=== PATIENT | female | born 1980 | race Caucasian/White ===

== ENCOUNTER 2016-11-30 18:15 | Emergency (ER) | payer OTHER ==
[2016-11-30 18:15] VITALS: BMI 22.4
[2016-11-30 18:27] VITALS: BP 135/65; PULSE 70; RESP 18; TEMP 97.5; O2SAT 98
--- NOTE | 2016-11-30 19:40 | ED PDOC ---
HPI: Female Pain Time Seen by Provider: 11/30/16 19:06 Chief Complaint (Nursing): Female Genitourinary Chief Complaint (Provider): Vaginal bleeding History Per: Patient History/Exam Limitations: no limitations Current Symptoms Are (Timing): Gone Now Associated Symptoms: denies: Vomiting Additional Complaint(s): Patient is a 36 year old female who is 7 weeks (G4, P1, A2), presenting to the emergency department for small amount of vaginal bleeding (3 episodes) since this afternoon. Only one pad was used today and she is currently not bleeding. Denies blood clots, abdominal pain, or vomiting. Of note, patient had an ultrasound done 3 days ago. PCP: none provided. 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 [facility] Past Medical History Reviewed: Historical Data, Nursing Documentation, Vital Signs Vital Signs: Last Vital Signs Temp 97.5 F L 11/30/16 18:22 Pulse 70 11/30/16 18:22 Resp 18 11/30/16 18:22 BP 135/65 11/30/16 18:22 Pulse Ox 98 11/30/16 18:22 - Medical History Other PMH: Lupus - Surgical History Surgical History: No Surg Hx - Family History Family History: States: Unknown Family Hx - Home Medications Home Medications: Ambulatory Orders Medication Instructions Recorded Cyclobenzaprine [Cyclobenzaprine 10 mg PO TID #20 tab 07/31/15 HCl] Ibuprofen [Motrin] 600 mg PO Q6 #20 tab 07/31/15 Promethazine HCl/Codeine 5 ml PO HS #80 ml 07/31/15 [Promethazine HCl-Codeine Phosphate 10 mg/5 ml] - Allergies Allergies/Adverse Reactions: Allergies Allergy/AdvReac Type Severity Reaction Status Date / Time No Known Allergies Allergy Verified 07/15/16 08:33 Review of Systems ROS Statement: Except As Marked, All Systems Reviewed And Found Negative Gastrointestinal: Negative for: Vomiting, Abdominal Pain Genitourinary Female: Positive for: Vaginal Bleeding (3 episodes). Negative for : Other (blood clots) Physical Exam - Reviewed Nursing Documentation Reviewed: Yes Vital Signs Reviewed: Yes - Physical Exam Appears: Positive for: Well, Non-toxic, No Acute Distress Head Exam: Positive for: ATRAUMATIC, NORMAL INSPECTION, NORMOCEPHALIC Skin: Positive for: Normal Color, Warm, Dry Eye Exam: Positive for: Normal appearance, EOMI, PERRL ENT: Positive for: Normal ENT Inspection Neck: Positive for: Normal, Painless ROM, Supple Cardiovascular/Chest: Positive for: Regular Rate, Rhythm. Negative for: Murmur Respiratory: Positive for: Normal Breath Sounds. Negative for: Accessory Muscle Use, Respiratory Distress Gastrointestinal/Abdominal: Positive for: Normal Exam, Soft Back: Positive for: Normal Inspection. Negative for: L CVA Tenderness, R CVA Tenderness Extremity: Positive for: Normal ROM. Negative for: Pedal Edema Neurologic/Psych: Positive for: Alert, Oriented - ECG O2 Sat by Pulse Oximetry: 98 (RA) Pulse Ox Interpretation: Normal Medical Decision Making Medical Decision Making: Time: 19:31 Initial impression: Vaginal bleeding with (first trimester). Differential includes but not limited to threatened miscarriage, demise, incomplete , ruling out ectopic but most unlikely because US completed 3 days ago shoes normal heart beat and viable IUP Initial plan: * Type and Screen * Serum * Urine * Urine Dipstick * US OB Transvaginal * Reevaluation 19:45 --Beta HCG, Quantitative: 434655.00 mIU/ mL 22:14 -US reviewed. FINDINGS: Uterus: Measures 8.5 x 4.6 cm. Single intrauterine gestation identified. pole and yolk sac are seen. Estimated gestational age is 9 weeks, 1 day, based on the crown rump length. Estimated delivery date is 07/08/2017. heart motion visualized, at 173 beats per minute. Note that the anatomy, amniotic fluid volume, and placental position cannot be evaluated at this early gestational age. Cervix appears closed, and is normal in length, measuring 3.6 cm. Right ovary: Within normal limits in appearance. Measures 3.7 x 1.7 x 2.8 cm. Flow seen in the right ovary on color and Doppler imaging, with no evidence of torsion. Left ovary: Within normal limits in appearance. Measures 3.1 x 2.7 x 1.8 cm. Flow seen in the left ovary on color and Doppler imaging, with no evidence of torsion. Cul de sac: No free fluid. IMPRESSION: 9 week, 1 day intrauterine with heart motion. No acute abnormality identified. Scribe Attestation: Documented by Monique Paris, acting as a scribe for Anjali Arrieta MD. Provider Scribe Attestation: All medical record entries made by the Scribe were at my direction and personally dictated by me. I have reviewed the chart and agree that the record accurately reflects my personal performance of the history, physical exam, medical decision making, and the department course for this patient. I have also personally directed, reviewed, and agree with the discharge instructions and disposition. Disposition - Clinical Impression Clinical Impression: Threatened , Vaginal bleeding before 22 weeks gestation - Patient ED Disposition Is Patient to be Admitted: No Doctor Will See Patient In The: Office Counseled Patient/Family Regarding: Studies Performed, Diagnosis, Need For Followup - Disposition Referrals: [facility] [Outside] Disposition: Routine/Home Disposition Time: 22:51 Condition: GOOD Additional Instructions: Follow up with your [facility] within 2 days. Instructions: Threatened Miscarriage (ED)
--- NOTE | 2016-11-30 22:12 | US ---
EXAM: US , Transvaginal CLINICAL HISTORY: 36 years old, female; Signs and symptoms; Lmp or gestational age (in weeks): 10/01/16; Antepartum complications; Hemorrhage; ; Additional info: Vaginal bleeding TECHNIQUE: Real-time transvaginal obstetrical ultrasound of the maternal pelvis and a first trimester with image documentation. Transvaginal imaging was used for better evaluation of the fetus and adnexa. EXAM DATE/TIME: 11/30/2016 7:31 PM COMPARISON: No relevant prior studies available. FINDINGS: Uterus: Measures 8.5 x 4.6 cm. Single intrauterine gestation identified. pole and yolk sac are seen. Estimated gestational age is 9 weeks, 1 day, based on the crown rump length. Estimated delivery date is 07/08/2017. heart motion visualized, at 173 beats per minute. Note that the anatomy, amniotic fluid volume, and placental position cannot be evaluated at this early gestational age. Cervix appears closed, and is normal in length, measuring 3.6 cm. Right ovary: Within normal limits in appearance. Measures 3.7 x 1.7 x 2.8 cm. Flow seen in the right ovary on color and Doppler imaging, with no evidence of torsion. Left ovary: Within normal limits in appearance. Measures 3.1 x 2.7 x 1.8 cm. Flow seen in the left ovary on color and Doppler imaging, with no evidence of torsion. Cul de sac: No free fluid. IMPRESSION: 9 week, 1 day intrauterine with heart motion. No acute abnormality identified. See above for remaining findings.
== END 2016-11-30 23:02 | disposition home or self-care (01) ==
LOC: H.ER 18:15
DX: O20.0 Threatened abortion (principal); M32.9 Systemic lupus erythematosus, unspecified

== ENCOUNTER 2017-04-14 06:13 | Emergency (ER) | payer OTHER ==
[2017-04-14 09:34] VITALS: BMI 26.2
[2017-04-14 10:40] LABS: RBC URINE 3 /hpf (0-3); URINE BACTERIA MOD (<OCC); URINE BILIRUBIN NEGATIVE (NEGATIVE); URINE BLOOD NEGATIVE (NEGATIVE); URINE COLOR YELLOW (YELLOW); URINE GLUCOSE (UA) NEG (Normal); URINE KETONE NEGATIVE (NEGATIVE); URINE LEUKOCYTE ESTERASE TRACE Leu/uL (Negative); URINE PROTEIN NEGATIVE (NEGATIVE); URINE UROBILINOGEN 0.2-1.0 mg/dL (0.2-1.0); WBC URINE 13 /hpf (0-5)
--- NOTE | 2017-04-14 14:09 | OBHP ---
Datetime: 04/14/2017 12:11 IP Adm Impression: , intrauterine ; No Active Labor IP Admit Plan: Discharge home Admit Comment, IP Provider: Pt was seen and evaluated, pt's UA results postive for bacteria (moderat e amount) but negative for nitrates. Pt discharged home with macrobid 100 BID for 5 day Pt advised to follow up with provider in 2days ED precautions reviewed with patient Madan Lyles PGY 3 Pt seen with resident I agree with the note EGA AdmitDate IP: 28.6 Vital Signs Provider: Reviewed IP Chief Complaint: Maternal discomfort Datetime: 04/14/2017 07:54 IP Chief Complaint Other: Right flank pain Extremities - PN: Normal Abdomen - PN: Normal Lungs - PN: Normal Heart - PN: Normal Thyroid - PN: Normal General - PN: Normal FHR - Baseline A Provider: 130 Contraction Comments Provider: NO Comments, ACOG Physical Exam: Back: tenderness over R flank area. Gestation - Est Wks by US: 28.6 NICHD Variability Prov Fetus A: Moderate 6-25bpm NICHD Accel Fetus A IP Provider: [id number] FHR Category Provider Fetus A: Category I DTRs - PN: Normal
[2017-04-14 16:07] VITALS: BP 90/61; PULSE 78; O2SAT 99
== END 2017-04-14 11:30 | disposition home or self-care (01) ==
LOC: H.EROB2 06:13 → H.L&D 06:13 → H.EROB2 11:30
DX: O23.42 Unspecified infection of urinary tract in pregnancy, second trimester (principal); Z3A.28 28 weeks gestation of pregnancy

== ENCOUNTER 2017-07-01 10:52 | Emergency (ER) | payer OTHER ==
[2017-07-01 10:52] VITALS: BMI 26.2
[2017-07-01 10:58] VITALS: TEMP 97
[2017-07-01] MEDS ORDERED: Morphine 4 MG/ML VIAL IV STA (12:23)
[2017-07-01] MEDS ORDERED: Morphine 4 MG/ML VIAL ONE (12:47)
[2017-07-01 12:53] LABS: BASO # 0.1 K/uL (0.0-0.2); EOS # 0.2 K/uL (0.0-0.7); EOS % 2.9 % (0.0-4.0); HEMOGLOBIN 12.3 g/dL (12.0-16.0); LYMPH # 2.4 K/uL (1.0-4.3); LYMPH % 29.7 % (20.0-40.0); MEAN CELL VOLUME 89.5 fl (81.0-99.0); MEAN CORPUSCULAR HEMOGLOBIN 29.5 pg (27.0-31.0); MEAN CORPUSCULAR HGB CONC 32.9 g/dL (33.0-37.0); MEAN PLATELET VOLUME 9.9 fl (7.2-11.7); MONO # 0.6 K/uL (0.0-0.8); MONO % 7.9 % (0.0-10.0); NEUT # 4.7 K/uL (1.8-7.0); NEUT % 58.5 % (50.0-75.0); NRBC % 0.4 % (0.0-0.0); RBC 4.18 Mil/uL (3.80-5.20); RED CELL DISTRIBUTION WIDTH 14.2 % (11.5-14.5)
--- NOTE | 2017-07-01 13:05 | ED PDOC ---
HPI: Headache Time Seen by Provider: 07/01/17 11:08 Chief Complaint (Nursing): Headache Chief Complaint (Provider): PAYNE History Per: Patient History/Exam Limitations: no limitations Additional Complaint(s): Pt 1 week presents to ED with c/o bilateral frontal PAYNE, took BP at home 152/102, not taking BP meds, pain not relieved with Ibuprofen. Denies fever, neck stiffness, paresthesias, weakness, visual changes, photophobia. No problems during . Past Medical History Reviewed: Nursing Documentation, Vital Signs Vital Signs: Last Vital Signs Temp 97 F L 07/01/17 10:57 Pulse 58 L 07/01/17 10:57 Resp BP 126/84 07/01/17 10:57 Pulse Ox 99 07/01/17 10:57 - Medical History Other PMH: SLE - Family History Family History: States: Unknown Family Hx - Living Arrangements Living Arrangements: With Family - Social History Current smoker - smoking cessation education provided: No Alcohol: None - Home Medications Home Medications: Ambulatory Orders Medication Instructions Recorded Amoxicillin/Potassium Clav 1 tab PO BID 07/01/17 [Augmentin 500-125 Tablet] Hydroxychloroquine Sulfate 1 tab PO BID 07/01/17 [Plaquenil] Naproxen [Naprosyn] 500 mg PO BID PRN #15 tablet 07/01/17 - Allergies Allergies/Adverse Reactions: Allergies Allergy/AdvReac Type Severity Reaction Status Date / Time No Known Allergies Allergy Verified 07/01/17 11:38 Review of Systems Constitutional: Negative for: Fever, Chills Eyes: Negative for: Vision Change ENT: Negative for: Ear Pain Cardiovascular: Negative for: Chest Pain, Palpitations Respiratory: Negative for: Cough, Shortness of Breath Gastrointestinal: Negative for: Nausea, Vomiting, Abdominal Pain, Diarrhea Genitourinary Female: Negative for: Dysuria Musculoskeletal: Negative for: Neck Pain, Back Pain Skin: Negative for: Rash, Lesions Neurological: Positive for: Headache. Negative for: Weakness, Numbness, Incoordination, Change in Speech, Confusion, Seizures, Altered Mental Status, Dizziness Physical Exam - Reviewed Nursing Documentation Reviewed: Yes Vital Signs Reviewed: Yes - Physical Exam Appears: Positive for: Well, No Acute Distress Head Exam: Positive for: ATRAUMATIC, NORMAL INSPECTION Skin: Positive for: Normal Color, Warm, Dry Eye Exam: Positive for: Normal appearance, EOMI, PERRL Neck: Positive for: Normal, Painless ROM, Supple Cardiovascular/Chest: Positive for: Regular Rate, Rhythm Respiratory: Positive for: Normal Breath Sounds Extremity: Positive for: Normal ROM. 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 Negative for: Motor/Sensory Deficits, Aphasia, Facial Droop - Laboratory Results Result Diagrams: 07/01/17 12:47 07/01/17 12:47 Urine dip results: Negative for: Protein - ECG O2 Sat by Pulse Oximetry: 99 Medical Decision Making Medical Decision Makin yo female with PAYNE. - labs - CT head - Morphine Accession No. : [id number] Patient Name / ID : [id number] TERRELL / [id number] Exam Date : 07/01/2017 13:02:48 ( Approved ) Study Comment : Sex / Age : F / 37Y Creator : Leticia Ospina MD Dictator : Leticia Ospina MD Make Up Arranger : Broadband Installer : Leticia Ospina MD Approver2 : Report Date : 07/01/2017 13:31:48 My Comment : PROCEDURE: CT HEAD WITHOUT CONTRAST. HISTORY: n COMPARISON: None available. TECHNIQUE: Axial computed tomography images were obtained through the head/brain without intravenous contrast. Radiation dose: Total exam DLP = 795.90 mGy-cm. This CT exam was performed using one or more of the following dose reduction techniques: Automated exposure control, adjustment of the mA and/or kV according to patient size, and/or use of iterative reconstruction technique. FINDINGS: HEMORRHAGE: No intracranial hemorrhage. BRAIN: Turner-white matter differentiation is preserved. There is no mass, mass effect or abnormal extra-axial fluid collection. There is no territorial infarction. VENTRICLES: The ventricles are normal in size, shape and configuration. CALVARIUM: There is no calvarial fracture or extracranial soft tissue swelling. PARANASAL SINUSES: Predominantly clear. MASTOID AIR CELLS: Predominantly clear. OTHER FINDINGS: None. IMPRESSION: No acute intracranial abnormality. Disposition - Clinical Impression Clinical Impression: Headache - Disposition Disposition: Routine/Home Disposition Time: 15:38 Condition: IMPROVED Additional Instructions: FOLLOW-UP WITH PMD WITHIN 2 DAYS FOR REEVALUATION. Prescriptions: Naproxen [Naprosyn] 500 mg PO BID PRN #15 tablet PRN Reason: Pain, Moderate (4-7) Instructions: Headache, Adult Forms: [facility] ([place])
[2017-07-01 13:09] LABS: ALBUMIN 3.7 g/dL (3.5-5.0); CALCIUM 9.2 mg/dL (8.4-10.2); GFR AFRICAN-AMERICAN > 60; GFR NON-AFRICAN AMERICAN > 60
[2017-07-01 13:13] LABS: ALT/SGPT 32 U/L (9-52); AST/SGOT 33 U/L (14-36); BLOOD UREA NITROGEN 17 mg/dl (7-17)
--- NOTE | 2017-07-01 13:33 | CT ---
PROCEDURE: CT HEAD WITHOUT CONTRAST. HISTORY: n COMPARISON: None available. TECHNIQUE: Axial computed tomography images were obtained through the head/brain without intravenous contrast. Radiation dose: Total exam DLP = 795.90 mGy-cm. This CT exam was performed using one or more of the following dose reduction techniques: Automated exposure control, adjustment of the mA and/or kV according to patient size, and/or use of iterative reconstruction technique. FINDINGS: HEMORRHAGE: No intracranial hemorrhage. BRAIN: Turner-white matter differentiation is preserved. There is no mass, mass effect or abnormal extra-axial fluid collection. There is no territorial infarction. VENTRICLES: The ventricles are normal in size, shape and configuration. CALVARIUM: There is no calvarial fracture or extracranial soft tissue swelling. PARANASAL SINUSES: Predominantly clear. MASTOID AIR CELLS: Predominantly clear. OTHER FINDINGS: None. IMPRESSION: No acute intracranial abnormality.
[2017-07-01 14:58] VITALS: O2SAT 99
[2017-07-01] MEDS ORDERED: Sodium Chloride 0.9% 1,000 ML IV STA (15:01)
[2017-07-01 16:16] VITALS: BP 116/69; PULSE 56; RESP 20
--- NOTE | 2017-07-02 14:54 | CARD ---
APPROVED REPORT EKG Measurement Heart [id number] <Conclusion> Sinus bradycardia Otherwise normal ECG
== END 2017-07-01 17:02 | disposition home or self-care (01) ==
LOC: H.ER 10:52
DX: R51 Headache (principal); M32.9 Systemic lupus erythematosus, unspecified
CPT/HCPCS: 70450; 80053; 85025; 93005; 96365; 96375; 99283; J2270; J2405; J7040